=== PATIENT | male | born 1990 | race Caucasian/White ===

== ENCOUNTER 2018-10-23 13:37 | Emergency (ER) | payer OTHER, SELFPAY ==
[~2018-10-23 13:37] MED LIST: Sodium Chloride Irrig Solution 250 ML BOT ONE; Sterile Water Irrigation 250 ML BOT ONE
[2018-10-23] MEDS ORDERED: Lidocaine 1% 20 ML MDV ONE (14:19)
[2018-10-23] MEDS ORDERED: Adacel (T-DAP) 0.5 ML SYRINGE ONE (14:19)
[2018-10-23] MEDS ORDERED: Morphine 10 MG/ML VIAL ONE (16:09)
[2018-10-23] MEDS ORDERED: Bacitracin 1 PK ONE (17:50)
== END 2018-10-23 18:10 | disposition home or self-care (01) ==
LOC: MADERS 13:37
DX: S81.852A Open bite, left lower leg, initial encounter (principal); S81.812A Laceration without foreign body, left lower leg, initial encounter; F17.220 Nicotine dependence, chewing tobacco, uncomplicated; W54.0XXA Bitten by dog, initial encounter
CPT/HCPCS: 12002; 90471; 90715; 96372; J2001; J2270